=== PATIENT | male | born 1975 | race Caucasian/White ===

== ENCOUNTER → 2018-07-31 | Outpatient (CLI) | payer OTHER ==
--- NOTE | 2018-07-31 16:49 | CONS ---
CONSULTATION REASON FOR CONSULTATION: Sleep apnea. This is a 43-year-old male patient who is coming in for re-evaluation. The patient was seen in our sleep center back in 2012. 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 He does not fall asleep at all and he feels that he is fully alert and awake during the day. No snoring. At times he wakes up in the middle of the night. However, he is able to go back to sleep without any major difficulties. He had a sleep evaluation back in November of 2012. At that time the patient weighed 265 pounds and he had an AHI of 5.3. No treatment was offered. His current weight is up 316. Despite this weight gain, he does not feel any major tiredness or sleepiness during the day. His [place] score is 0. He goes to bed around 9 p.m., wakes up at 5:30 a.m. in the morning. On weekends he goes to bed around 10 or11 p.m. and wakes up at 8 a.m. in the morning. He is averaging around 7 hours of sleep. No snoring. No apneas. No insomnia. No choking. No gasping for air. No restlessness in his lower extremities. No sleeptalking. No grinding. No sleepwalking. No dry mouth. No anxiety or panic attacks. No palpitations. No heartburn. No issues with memory or concentration. No issues with any motor vehicle accident because of feeling drowsy or sleepy. PAST MEDICAL HISTORY: Obesity; otherwise negative. PAST SURGICAL HISTORY: Includes vasectomy and tendon surgery. DRUG ALLERGIES: PENICILLIN. OUTPATIENT MEDICATION LIST: Includes Xanax on a p.r.n. basis. SOCIAL HISTORY: The patient is a nonsmoker. No history of alcoholism. No history of IV drugs. FAMILY HISTORY: NEREIDA and COPD in his father. Mother of complications of bowel rupture. REVIEW OF SYSTEMS: Twelve-point review of systems was done. Positive findings were all mentioned above in the history of present illness. Of significance is weight gain. No chest pain. No shortness of breath. No dysuria, frequency or urgency. No nausea or vomiting or abdominal pain. No heartburn at nighttime. No headaches. No altered mentation. No focal neurological deficits. No seizure activity. No history of any cancer, insomnia, narcolepsy, tuberculosis, fibromyalgia, chronic pain or any other cardiac problems. PHYSICAL EXAMINATION: BP is 134/77, pulse 85, respiration 16, temperature 98.6. Saturation is 96% on room air. Neck size is 18 inches. [place] score is zero. Height is 6 feet 0 inches, weight 316. BMI is 42.8. GENERAL APPEARANCE: Calm, comfortable. No acute distress. Head is atraumatic, normocephalic. Neck is short, supple. Crowding of the posterior pharynx is not present. He has a Mallampati class 1. LUNGS: Clear to auscultation. Heart sounds are regular rate and rhythm. Normal S1, S2. No S3, S4. No murmurs. ABDOMEN: Soft, nontender. No organomegaly. EXTREMITIES: No edema. No cyanosis or clubbing. NEUROLOGIC: Alert and oriented x3. No focal neurological deficit. PSYCHIATRIC: Negative for anxiety or depression. IMPRESSION: 1. Mild soft snoring. Overall suspicion for obstructive sleep apnea is low. 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 2. Obesity with interval weight gain. The patient's previous sleep study back in 2012 showed an AHI of 5.3. Since then he has gained approximately 50 pounds. He is coming in for re-evaluation. PLAN: 1. Encourage weight loss. 2. Continue same sleep schedule. 3. Optimize sleep hygiene measures. 4. Will proceed with a polysomnogram to re-evaluate this patient for obstructive sleep apnea and treat accordingly. If negative, the patient will proceed with updating his DOT certification without any issues. Final recommendation will be done after completing his polysomnogram. MMODL / IJN: [id number] /
== END | disposition home or self-care (01) ==
LOC: SLEEP 14:00
PROVIDERS: ATTEND Internal Medicine Critical Care Medicine
DX: R06.83 Snoring (principal); E66.9 Obesity, unspecified; Z68.41 Body mass index [BMI] 40.0-44.9, adult
CPT/HCPCS: 99211

== ENCOUNTER → 2018-12-18 | Outpatient (CLI) | payer OTHER ==
--- NOTE | 2018-12-18 22:29 | PN ---
PROGRESS NOTE Sourav is a 43-year-old male patient with history of obstructive sleep apnea. The patient came in for DOT certification renewal. He was diagnosed having NEREIDA with an AHI of 9. He was given an APAP unit. On today's evaluation, the patient is using his machine regularly. He has not seen much difference in terms of his symptoms; however, based on his job requirements and DOT certification requirements, he has been using the machine. He has been using it more than 4 hours 93% of the time. He is set at a minimum pressure of 5, maximum pressure of 20, and his average pressure is 12 cm of water. His AHI is down to 1. Leak is only 11 L/minute. He has no specific complaints otherwise for now. He is benefitting from the treatment. His weight is stable. He is committed to lose weight. His [place] score is down to zero. REVIEW OF SYSTEMS: Fourteen-point review of systems was done. Positive findings are all mentioned above in the history of present illness. PHYSICAL EXAMINATION: VITAL SIGNS: BP is 147/90, pulse 93, respirations 16. Weight is 313, temperature 98.6. [place] score is down to zero. Saturation 95% on room air. GENERAL APPEARANCE: Calm, comfortable. HEAD: Atraumatic, normocephalic. NECK: Supple. No JVD. No goiter or neck masses. Mallampati class IV. LUNGS: Clear to auscultation. HEART: Heart sounds are regular rate and rhythm. Normal S1, S2. No S3, S4. No murmurs. ABDOMEN: Soft, nontender. No organomegaly. EXTREMITIES: No edema. No cyanosis or clubbing. IMPRESSION: 1. Mild obstructive sleep apnea, apnea/hypopnea index of 9, currently on APAP. Treatment is successful. 2. No hypersomnia. 3. Obesity. 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 PLAN: 1. The patient has his DOT certification renewed. 2. Continue APAP treatments. 3. See me back in a year's time, earlier if needed. MMODL / IJN: [id number] /
== END | disposition home or self-care (01) ==
LOC: SLEEP 16:26
PROVIDERS: ATTEND Internal Medicine Critical Care Medicine
DX: G47.33 Obstructive sleep apnea (adult) (pediatric) (principal); E66.9 Obesity, unspecified; Z99.89 Dependence on other enabling machines and devices